=== PATIENT | female | born 1985 | race Caucasian/White ===

== ENCOUNTER 2016-05-06 04:54 | Emergency (ER) | payer BC ==
[~2016-05-06] VITALS: Ht 165.1 cm; Wt 76.9 kg
[~2016-05-06 04:54] MED LIST: ENDOCET 5-3251 EACH PO; IBUPROFEN800 MG PO; Motrin PO; NOHOMEMEDS; NORA-BE0.35 MG; Percocet 5/325,Endoc PO
[2016-05-06 05:14] LABS: HEMATOCRIT 37.3 % (36.0-46.0); MCH 30.9 PG (29.0-34.0); MCHC 33.5 G/DL (30.0-36.0); MCV 92.1 FL (83-99); MEAN PLAT.VOLUME 9.8 uM^3 (9.5-12.4); PLATELET COUNT 279 K/uL (156-360); RBC DIS.WIDTH-CV 12.4 % (11.8-14.6); RBC DIS.WIDTH-SD 41.1 % (39-53); RED BLOOD COUNT 4.05 M/uL (3.80-5.20)
[2016-05-06 05:25] LABS: CHLORIDE 109 mEq/L (99-109); POTASSIUM 3.8 mEq/L (3.7-5.4); SODIUM 141 mEq/L (136-147)
[2016-05-06 05:27] LABS: GLUCOSE 124 mg/dL (70-99)
[2016-05-06 05:28] LABS: ANION GAP 8 MEQ/L (2-14)
[2016-05-06 05:31] LABS: GFR ESTIMATE (CALCULATED) > 59 mL/min/; UREA NITROGEN (BUN) 9 mg/dL (9-23)
[2016-05-06 05:37] LABS: TROP-I INTERPRETATION NEGATIVE; TROPONIN-I < 0.01 ng/mL (0.0-0.30)
[2016-05-06 05:39] LABS: QUANTITATIVE HCG < 4.0 MIU/ML
[2016-05-06 07:09] VITALS: BP 118/76
[2016-05-06 07:30] VITALS: BP 117/75
[2016-05-06 07:37] LABS: D-DIMER ELISA 0.36 mg/L FEU (< 0.57)
[2016-05-06 08:00] VITALS: BP 114/72
[2016-05-06 08:30] VITALS: BP 122/69
[2016-05-06 09:17] LABS: TROP-I INTERPRETATION NEGATIVE; TROPONIN-I < 0.01 ng/mL (0.0-0.30)
[2016-05-06] MEDS ORDERED: MOTRIN800 MG PO (09:31)
[2016-05-06] MEDS ORDERED: PROAIR HFA8.5 GM IH (09:31)
[2016-05-06 09:49] VITALS: BP 122/69
== END 2016-05-06 09:59 | disposition home or self-care (01) ==
LOC: EME 04:54
PROVIDERS: Emergency Medicine
DX: J20.9 Acute bronchitis, unspecified (principal); R07.89 Other chest pain
CPT/HCPCS: 71020; 80048; 84484; 84702; 85027; 85379; 93005; 94640; 99281; 99284